=== PATIENT | female | born 1985 | race Two or more races ===

== ENCOUNTER → 2024-04-09 | Outpatient (CLI) | payer MEDICAID, SELFPAY ==
--- NOTE | 2024-04-09 11:00 | XR_ITS ---
Examination: Transvaginal ultrasound of the pelvis, complete Technique: Transvaginal sonographic images pelvis performed using rodriguez scale imaging Exam date and time: April 09, 2024 1103 hours INDICATIONS: Pelvic pain beginning 5 months ago post FINDINGS: Uterus 9.6 cm endometrial stripe 1.1 cm 8 mm cyst in the cervix Right ovary 3.7 cm arterial flow Left ovary 3.5 cm arterial flow IMPRESSION: Negative study.
== END | disposition home or self-care (01) ==
LOC: CDIM 10:47
PROVIDERS: PCP Nurse Practitioner Family; Referring Provider Nurse Practitioner Family; Visit Provider Nurse Practitioner Family
DX: R10.2 Pelvic and perineal pain (principal)
CPT/HCPCS: 76830